=== PATIENT | female | born 1930 | race Caucasian/White ===

== ENCOUNTER 2018-01-08 18:06 | Observation (INO) ==
--- NOTE | 2018-01-08 18:31 | Emergency Department Note ---
Disposition Clinical Impression: Left patella fracture Qualifiers: Encounter type: initial encounter Fracture type: closed Fracture morphology: longitudinal Fracture alignment: nondisplaced Qualified Code(s): S82.025A - Nondisplaced longitudinal fracture of left patella, initial encounter for closed fracture Disposition: Admitted As Inpatient Condition: Fair Referrals: Manfred Molina MD [Primary Care Provider] - Forms: ED Satisfaction Letter Time of Disposition: 21:05 General Adult HPI - General Chief complaint: ED Fall Stated complaint: Left leg pain/Fall Time Seen by Provider: 01/08/18 18:19 Source: patient, family Limitations: no limitations - History of Present Illness HPI Narrative: This is an 87 y/o female who comes to the ED from ortho with concern for left tibial plateau fracture. She lives alone, and her family is concerned, since the orthopedic surgeon told them she should be nonweightbearing, that she will be unable to manage at home. Follow apparently occurred about 47 hours prior to arrival. She saw her orthopedic surgeon earlier today. Pain Scale: 4 - Related Data Previous Rx's Medication Instructions Recorded OxyCODONE/APAP 5/325 [Percocet 1 each PO Q6HR PRN #20 tablet 11/27/15 5/325 MG] Sulfamethoxazole/Trimeth DS 1 each PO BID #20 tablet 10/23/17 [Bactrim DS] Allergies Allergy/AdvReac Type Severity Reaction Status Date / Time Penicillins Allergy Hives Verified 11/27/15 17:40 gabapentin AdvReac Confusion Verified 10/23/17 14:25 terbinafine [From Lamisil] AdvReac Nausea Verified 10/23/17 14:25 All systems ED: reviewed and negative except as stated. Musculoskeletal: Reports: arthralgia Past Medical History - Past Medical History Medical history: Reports: diabetes, hypertension, myocardial infarction, other - Social History Smoking Status: Never smoker Smokeless Tobacco Status: No Alcohol use: Reports: none Drug use: Reports: none Physical Exam - General Limitations: no limitations General appearance: alert, in distress (in mild distress) - Eye Eye exam: Present: normal appearance, PERRL, EOMI - Chest Chest inspection: Present: normal inspection, symmetric chest wall rise - Respiratory Respiratory exam: Present: normal lung sounds bilaterally - Cardiovascular Cardiovascular exam: Present: regular rate, normal rhythm, normal heart sounds - Abdominal Exam Abdominal exam: Present: soft, Non-Tender. Absent: tenderness, distention, guarding, rebound, rigidity - Extremities Exam Extremities exam: Present: other (There is swelling along the inferior aspect of the left knee extending onto the proximal left tibia with an area of ecchymosis measuring approximately 4 cm in diameter. There is minimal patellar tenderness, with no lateral or medial tenderness, Betsey test is negative, Luis Angel test is negative) - Neurological Exam Neurological exam: Present: alert, oriented X3 - Psychiatric Psychiatric exam: Present: normal affect, normal mood - Skin Skin exam: Present: warm, dry, intact, normal color Course Course Narrative: This is an 87-year-old female with a minimum of a contusion of the left knee. Vital Signs Temperature 98.4 F 01/08/18 18:11 Pulse Rate 94 01/08/18 18:11 Respiratory Rate 18 01/08/18 18:11 Blood Pressure 82/53 01/08/18 18:11 O2 Sat by Pulse Oximetry 96 01/08/18 18:11 Temperature 98.4 F 01/08/18 18:11 Pulse Rate 89 01/08/18 20:28 Respiratory Rate 18 01/08/18 20:28 Blood Pressure 90/50 01/08/18 20:28 O2 Sat by Pulse Oximetry 96 01/08/18 18:11 Oxygen Delivery Oxygen Delivery Room Air Medical Decision Making - [facility] Narrative Medical decision making narrative: This is an 87-year-old female who has sustained a sagittally oriented fracture of her left patella. I discussed her case with the on-call hospitalist, who accepted her for observation - Lab Data Lab results reviewed: Yes I reviewed the patient's lab results. Lab results narrative: CBC showed slight leukocytosis of 12.1 BMP was unremarkable Result diagrams: 01/08/18 18:44 01/08/18 18:44 Lab Results 01/08/18 01/08/18 Range/Units 18:44 18:44 WBC 12.1 H (4.3-11.1) K/mcL RBC 3.58 L (3.82-4.97) M/mcL Hgb 11.5 (11.5-15.4) g/dL Hct 34.3 L (35.3-44.9) % MCV 95.8 (83.0-100.0) fL MCH 32.1 (28.0-33.3) pg MCHC 33.5 (31.6-35.5) g/dL RDW 12.7 (11.5-14.5) % Plt Count 217 (140-400) K/mcL MPV 9.8 (9.4-12.4) fL Immature Gran % 0.4 (0-4) % Seg Neutrophils % 65.5 % Lymphocytes % 18.2 % Monocytes % 15.2 % Eosinophils % 0.3 % Basophils % 0.4 % Neutrophils # 7.9 (1.6-8.9) K/mcL Lymphocytes # 2.2 (0.6-4.6) K/mcL Monocytes # 1.8 H (0.0-1.3) K/mcL Eosinophils # 0.0 (0.0-0.6) K/mcL Basophils # 0.1 (0.0-0.2) K/mcL Sodium 136 (136-145) mEq/L Potassium 3.7 (3.5-5.1) mEq/L Chloride 102 (98-107) mEq/L Carbon Dioxide 27 (23-29) mEq/L BUN 16 (8-23) mg/dL Creatinine 0.55 L (0.60-1.20) mg/dL Est GFR ( Amer) > 60 (> 60) Est GFR (Non-Af Amer) > 60 (> 60) BUN/Creatinine Ratio 29 H (6-26) Glucose 113 H (70-105) mg/dL Calculated Osmolality 284 (280-300) Calcium 8.9 (8.6-10.3) mg/dL - Radiology Data Radiology results reviewed: Yes I reviewed the patient's radiology results. CT of the left knee was interpreted as follows: 1. Acute nondisplaced sagittally oriented fracture of the inferolateral patella. 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 2. Moderate tricompartmental degenerative changes with a small effusion. Critical Care Time Critical Care Time: No
[2018-01-08 18:59] LABS: Basophils # 0.1 K/mcL (0.0-0.2); Basophils % 0.4 %; Eosinophils % 0.3 %; Hematocrit 34.3 % (35.3-44.9); Hemoglobin 11.5 g/dL (11.5-15.4); Immature Granulocytes % 0.4 % (0-4); Lymphocytes # 2.2 K/mcL (0.6-4.6); Lymphocytes % 18.2 %; Mean Corpuscular HGB Conc 33.5 g/dL (31.6-35.5); Mean Corpuscular Hemoglobin 32.1 pg (28.0-33.3); Mean Corpuscular Volume 95.8 fL (83.0-100.0); Mean Platelet Volume 9.8 fL (9.4-12.4); Monocytes # 1.8 K/mcL (0.0-1.3); Monocytes % 15.2 %; Neutrophils # 7.9 K/mcL (1.6-8.9); Platelet Count 217 K/mcL (140-400); Red Blood Count 3.58 M/mcL (3.82-4.97); Red Cell Distribution Width 12.7 % (11.5-14.5); Segmented Neutrophils % 65.5 %
[2018-01-08 19:17] LABS: BUN/Creatinine Ratio 29 (6-26); Blood Urea Nitrogen 16 mg/dL (8-23); Calcium 8.9 mg/dL (8.6-10.3); Carbon Dioxide 27 mEq/L (23-29); Chloride 102 mEq/L (98-107); Glucose 113 mg/dL (70-105); Osmolality,Calculated 284 (280-300); Potassium 3.7 mEq/L (3.5-5.1); Sodium 136 mEq/L (136-145); eGFR For Non-African Americans > 60 (> 60)
[2018-01-08] MEDS ORDERED: 0.9 % Sodium Chloride 500 ML IVC ONE (20:33)
[2018-01-08] MEDS ORDERED: Naloxone 0.4 MG/ML INJ IVP PRN (23:04)
[2018-01-08] MEDS ORDERED: Dextrose Gel 15 GM/37.5 ML TUBE PO PRN ×2 (23:04)
[2018-01-08] MEDS ORDERED: D5% in Water 1,000 ML IVC PRN (23:04)
[2018-01-08] MEDS ORDERED: *HR* HYDROcodone/Acet 5/325 mg TABLET PO PRN (23:04)
[2018-01-08] MEDS ORDERED: *HR* Dextrose 50 % in Water (Syg) 50 ML SYRINGE IVP PRN (23:04)
--- NOTE | 2018-01-09 00:17 | Internal Med History&Physical ---
Date of Encounter: 01/08/18 Time of Encounter: 22:40 Internal Medicine - H&P: HPI Chief complaint: intractable knee pain Admitted From: Emergency Dept Plans for Post Hospital Care: Transfer Inp Rehab Fac History of present illness: Ms. Wyman is an 87 year old female who fell 2 days ago now presents to our ER for intractable knee pain, an inability to bear weight, and inability to care for herself. She saw an orthopedic surgeon at [facility] earlier today. Patient was unable to bear weight and unable to have MRI imaging performed today. Because of the worsening pain and inability to bear weight, she came to our ER for evaluation. She underwent CT imaging of her left knee which confirmed a patellar fracture. Orthopedics was consulted by the ER who recommended patient be placed in a knee immobilizer, bear weight as tolerated, and undergo physical therapy. Attempts were made to discharge patient with the above recommendations. However, she was unable to bear weight and was unable to care for self. She was therefore admitted to hospitalist service with orthopedic consultation. Upon my assessment of the patient, patient and her daughter and granddaughter confirmed the above history. Patient lives alone and cares for herself. She is unable to bear weight due to excruciating pain. She denies any lightheadedness, dizziness, syncope, or near syncope with her fall. She states she slipped on a step in a garage and landed on concrete thus sustaining injury to her left knee. Patient does have a history of atrial fibrillation and has a pacemaker in place. However, she denies any palpitations, lightheadedness, dizziness, or racing heartbeats. She denies any chest pain or shortness of breath. I discussed with patient, daughter, and granddaughter that we will consult orthopedics, physical therapy, and social sciences instructor. Because of the inability to care for herself and inability to bear weight presently, she cannot go home safely. Past Med Surg Social Fam HX - Past Medical History Attestation: Yes The following information was validated with the patient. Source: patient, obtained from family, other (ER notes) Medical history: arthritis, atrial fibrillation, CVA, diabetes, GERD, hypertension, myocardial infarction, seizures Additional medical history: PNEUMONIA Psychiatric history: anxiety, depression - Past Surgical History Surgical History: , coronary bypass (CABG), AICD, pacemaker Additional surgical history: hip surgery - Social History Smoking Status: Never smoker Smokeless Tobacco Status: No Alcohol use: none Drug use: none Current living situation: Home - Independent Activity Level: Independent ambulation Recent Out of Country Travel Within the Last 8 Weeks: No - Family History Mother Living Status: Hx Family Musculoskeletal Disorders: No Father Living Status: Hx Family Musculoskeletal Disorders: No Internal Medicine - H&P: Meds Alendronate Sodium 70 mg PO TU 01/08/18 [History] Aspirin [Lo-Dose Aspirin EC] 162 mg PO DAILY 01/08/18 [History] Calcium Carbonate [Calcium] 500 mg PO DAILY 01/08/18 [History] Cholecalciferol (D-3) [Vitamin D] 1,000 unit PO DAILY 01/08/18 [History] Cyanocobalamin (B-12) [Vitamin B12] 1,000 mcg IM FR 01/08/18 [History] Ferrous Sulfate [Iron] 325 mg PO DAILY 01/08/18 [History] Magnesium Oxide [Magnesium] 400 mg PO DAILY 01/08/18 [History] Mecobalamin [B-12] 1,000 mcg SL DAILY 01/08/18 [History] Metformin HCl 250 mg PO DAILY 01/08/18 [History] Omeprazole [PriLOSEC] 40 mg PO DAILY 01/08/18 [History] PARoxetine HCl [Paroxetine HCl] 40 mg PO DAILY 01/08/18 [History] Phenytoin ER [Dilantin ER] 100 mg PO TID 01/08/18 [History] Polyethylene Glycol 3350 [MiraLax bowel prep] 17 gm PO DAILY PRN 01/08/18 [History] Simvastatin [Zocor] 10 mg PO DAILY 01/08/18 [History] Sotalol HCl [Betapace] 120 mg PO QPM 01/08/18 [History] Allergy/AdvReac Type Severity Reaction Status Date / Time Penicillins Allergy Hives Verified 11/27/15 17:40 gabapentin AdvReac Confusion Verified 10/23/17 14:25 sulfamethoxazole AdvReac See Verified 01/08/18 21:39 [From Bactrim] Comments terbinafine [From Lamisil] AdvReac Nausea Verified 10/23/17 14:25 trimethoprim [From Bactrim] AdvReac See Verified 01/08/18 21:39 Comments - Constitutional Constitutional: no chills, no fever(s) - EENT Eyes: no blurry vision, no change in vision Ears: no ear pain, no tinnitus Nose, mouth and throat: no sore throat - Cardiovascular Cardiovascular ROS IM: irregular heart rhythm (chronic atrial fibrillation), no chest pain, no dyspnea, no dyspnea on exertion, no lightheadedness, no palpitations, no syncope - Respiratory Respiratory: no cough, no chest congestion, no excessive phlegm production - Gastrointestinal Gastrointestinal: no abdominal pain, no diarrhea, no vomiting - Genitourinary Genitourinary: no dysuria, no flank pain - Musculoskeletal Musculoskeletal ROS IM: arthralgias, joint swelling (left knee) - Integumentary Integumentary IM: no rash, no jaundice - Neurological Neurological ROS: frequent falls, no dizziness, no focal weakness, no headache(s) - Psychiatric Psychiatric: no anxiety, no depression - Endocrine Endocrine IM: no polydipsia, no polyphagia, no polyuria - Allergic/Immunologic Allergic/Immunologic: no GI upset with certain foods - Constitutional Vitals: Temp Pulse Resp BP Pulse Ox 99.3 F 120 16 121/68 95 01/08/18 22:13 01/08/18 22:13 01/08/18 22:13 01/08/18 22:13 01/08/18 22:13 General appearance: Present: cooperative, mild distress, pleasant, answers questions appropriately Exam: in mild to moderate pain; otherwise NAD - Head Head exam: Present: atraumatic, normal inspection - Eye Eye exam: Present: EOMI, PERRL. Absent: scleral icterus Pupils: Present: normal accommodation - ENT ENT exam: Present: mucous membranes dry, normal exam, normal oropharynx - Neck Neck exam general surgery: Present: full ROM, supple. Absent: tenderness, nuchal rigidity, thyromegaly - Respiratory Respiratory exam: Present: CTAB. Absent: chest wall tenderness, rales, respiratory distress, rhonchi, wheezes - Cardiovascular Cardiovascular exam: Present: distant heart sounds, irregular rhythm, +S1, +S2, systolic murmur (grade 1). Absent: diastolic murmur - GI/Abdominal GI/Abdominal exam: Present: normal bowel sounds, soft. Absent: guarding, hepatomegaly, mass, rebound, splenomegaly, tenderness - Extremities Exam Extremities exam: Present: joint swelling (left knee), normal capillary refill, warm. Absent: calf tenderness, pedal edema Additional comments: left knee immobilized - Back Exam Back exam: Absent: CVA tenderness (L), CVA tenderness (R) - Neurological Exam Neurological exam: Present: alert, CN II-XII intact, oriented X3, strengths equal and symetr throughout Additional comments: chronic parathesias in feet -- neuropathy - Psychiatric Psychiatric exam: Present: normal affect, normal mood - Skin Skin exam: Present: dry, intact, warm Internal Med - H&P Results - Labs CBC & Chem 7: 01/08/18 18:44 01/08/18 18:44 Labs: Short CBC 01/08/18 Range/Units 18:44 WBC 12.1 H (4.3-11.1) K/mcL Hgb 11.5 (11.5-15.4) g/dL Hct 34.3 L (35.3-44.9) % Plt Count 217 (140-400) K/mcL Neutrophils # 7.9 (1.6-8.9) K/mcL BMP 01/08/18 18:44 Sodium 136 Potassium 3.7 Chloride 102 Carbon Dioxide 27 BUN 16 Creatinine 0.55 L Glucose 113 H Calcium 8.9 - Impressions ITS Impressions Knee CT 01/08/18 18:29 IMPRESSION: 1. Acute nondisplaced sagittally oriented fracture of the inferolateral patella. 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 2. Moderate tricompartmental degenerative changes with a small effusion. D/ / Devyn Fay MD / Devyn Fay MD Interpreting Provider: Devyn Fay MD - Diagnostic Studies Other Images Status: image reviewed by me (Left knee CT -- non-displaced patellar fracture) - Assessment and plan (1) Left patella fracture Current Visit: Yes Status: Acute Assessment and plan: 1. Will order oral pain medication in a step-pleitez fashion for pain control. 2. Consult PT and orthopedics for guidance. 3. Consult social sciences instructor for D/C planning. 4. Patient unable to care for herself presently. Qualifiers: Encounter type: initial encounter Fracture type: closed Fracture morphology: longitudinal Fracture alignment: nondisplaced Qualified Code(s): S82.025A - Nondisplaced longitudinal fracture of left patella, initial encounter for closed fracture (2) Atrial fibrillation Current Visit: Yes Status: Chronic Assessment and plan: 1. Will order EKG and place on telemetry. 2. Continue home meds as appropriate. 3. Consult cardiology if necessary. 4. Patient follows with cardiology in [place] as outpatient. Qualifiers: Atrial fibrillation type: paroxysmal Qualified Code(s): I48.0 - Paroxysmal atrial fibrillation (3) CAD (coronary artery disease) Current Visit: Yes Status: Chronic Assessment and plan: 1. Continue home meds as appropriate. 2. EKG and telemetry as above. 3. No anginal symptoms presently or in recent past. Qualifiers: Coronary Disease-Associated Artery/Lesion type: [place] artery [place] vs. transplanted heart: [place] heart Associated angina: without angina Qualified Code(s): I25.10 - Atherosclerotic heart disease of [place] coronary artery without angina pectoris (4) DVT prophylaxis Current Visit: Yes Status: Acute Assessment and plan: 1. Heparin SQ.
[2018-01-09] MEDS ORDERED: [UNRECOGNIZED DRUG - OTHER] TP PRN (00:49)
[2018-01-09] MEDS: traMADol 50 MG TABLET PO PRN (01:57)
[2018-01-09] MEDS: 0.9 % Sodium Chloride 1,000 ML IVC SCH ×2 (01:58→15:27)
[2018-01-09 04:56] LABS: Basophils # 0.1 K/mcL (0.0-0.2); Basophils % 0.5 %; Eosinophils # 0.1 K/mcL (0.0-0.6); Eosinophils % 0.6 %; Hematocrit 32.4 % (35.3-44.9); Hemoglobin 10.7 g/dL (11.5-15.4); Immature Granulocytes % 0.4 % (0-4); Lymphocytes % 18.4 %; Mean Corpuscular Hemoglobin 32.1 pg (28.0-33.3); Mean Corpuscular Volume 97.3 fL (83.0-100.0); Mean Platelet Volume 9.6 fL (9.4-12.4); Monocytes # 1.7 K/mcL (0.0-1.3); Monocytes % 15.4 %; Neutrophils # 6.9 K/mcL (1.6-8.9); Platelet Count 200 K/mcL (140-400); Red Blood Count 3.33 M/mcL (3.82-4.97); Red Cell Distribution Width 12.9 % (11.5-14.5); Segmented Neutrophils % 64.7 %
[2018-01-09 05:05] LABS: INR 1.2; Prothrombin Time 13.1 Seconds (9.4-12.1)
[2018-01-09 05:08] LABS: Activated Partial Thrombo Time 28.1 Seconds (26.0-36.0)
[2018-01-09 05:15] LABS: Alanine Aminotransferase 8 Units/L (7-52); Albumin 3.3 g/dL (3.5-5.7); Alkaline Phosphatase 71 Units/L (34-104); Aspartate Amino Transferase 12 Units/L (13-39); BUN/Creatinine Ratio 29 (6-26); Bilirubin,Total 0.7 mg/dL (0.3-1.0); Blood Urea Nitrogen 15 mg/dL (8-23); Calcium 8.6 mg/dL (8.6-10.3); Carbon Dioxide 26 mEq/L (23-29); Chloride 103 mEq/L (98-107); Globulin 3.2 g/dL (2.4-3.5); Glucose 128 mg/dL (70-105); Magnesium 1.5 mg/dL (1.6-2.6); Osmolality,Calculated 280 (280-300); Potassium 3.7 mEq/L (3.5-5.1); Sodium 134 mEq/L (136-145); Total Protein 6.5 g/dL (6.4-8.9); eGFR For Non-African Americans > 60 (> 60)
[2018-01-09] MEDS: *HR* Heparin 5,000 UNIT/ML VIAL SQ SCH ×2 (06:49→18:26)
[2018-01-09] MEDS: Insulin LISPRO 300 UNITS/3 ML VIAL SQ SCH ×3 (09:18→16:13)
[2018-01-09] MEDS: Aspirin Enteric Coated 81 MG Tablet PO SCH (09:20)
[2018-01-09] MEDS: Magnesium Oxide 400 MG TABLET PO SCH (09:20)
[2018-01-09] MEDS: Cyanocobalamin (B-12) 1,000 MCG TABLET PO SCH (09:21)
[2018-01-09] MEDS: Cholecalciferol (D-3) 1,000 UNIT TABLET PO SCH (09:21)
[2018-01-09] MEDS: Acetaminophen 325 MG TABLET PO PRN (12:37)
--- NOTE | 2018-01-09 12:56 | Internal Med Progress Note ---
Hospitalist Progress Note - Encounter Date of Encounter: 01/09/18 Time of Encounter: 12:45 - Subjective Interval History: I have seen and evaluated the patient at bedside. patient reports pain in her left knee. denies palpitation, nausea, vomiting or abdominal pain as well as shortness of breath. - Exam Vitals: Temp Pulse Resp BP Pulse Ox 100.2 F H 83 15 119/62 92 01/09/18 11:35 01/09/18 11:35 01/09/18 11:35 01/09/18 11:35 01/09/18 11:35 Exam: Vitals: Reviewed. General: Alert and oriented x4. In mild distress due to left knee pain. Skin: Normal color, no rash, no lesions. HEENT: EOM, pupils equal, round and reactive. Cardiovascular: Irregularly, irregular, Normal S1 & S2, no rubs, no gallops. 2/6 systolic murmur Lungs: CTA b/l, no wheezes or crackles. Abdomen: Soft, non-tender, no rigidity. Extremities: No edema in the right lower extr, edema on the left knee. Neurological:Normal cognition. Rest of the physical exam is non contributory - Assessment and Plan (1) Left patella fracture Current Visit: Yes Status: Acute Assessment and Plan: [place] continues to reports pain at the left knee. Ortho has been consulted, recommendations appreciated. patient on [place] 5/325mg/PO 1tab Q6HR PRN plus tramadol 50 mg by mouth every 6 hours for pain control psych social worker have been consulted as patient will likely need a short course of rehab PT/OT (2) Atrial fibrillation Current Visit: Yes Status: Chronic Assessment and Plan: Rate controlled. continue Sotalol 120mg/PO daily Not on full dose anticoagulation on the outpatient settings due to high risk of fall (3) CAD (coronary artery disease) Current Visit: Yes Status: Chronic Assessment and Plan: On aspirin 162 mg by mouth daily. And simvastatin 10 mg by mouth at bedtime. (4) Seizures Current Visit: Yes Status: Chronic Assessment and Plan: Continue phenytoin 100 mg by mouth 3 times a day. (5) Diabetes Current Visit: Yes Status: Chronic Assessment and Plan: Blood sugar has been well controlled. carb controlled diet. continue lispro low dose sliding scale ac. DVT Prophylaxis: Patient heparin subcutaneous. - Summary of Assessment and Plan Summary of Assessment and Plan: Patient to remain in the hospital due to left patellar fracture. Pending ortho evaluation. - Time Spent with Patient Total time spent is greater than 50% in coordination of care (as documented) at patient's floor/unit and/or counseling patient: Greater than 35 minutes (40) Plan of Care Discussed with: patient (the nurse and family member in the room) Internal Medicine: Result - Labs CBC & Chem 7: 01/09/18 04:33 01/09/18 04:33 Labs: Short CBC 01/08/18 01/09/18 Range/Units 18:44 04:33 WBC 12.1 H 10.7 (4.3-11.1) K/mcL Hgb 11.5 10.7 L (11.5-15.4) g/dL Hct 34.3 L 32.4 L (35.3-44.9) % Plt Count 217 200 (140-400) K/mcL Neutrophils # 7.9 6.9 (1.6-8.9) K/mcL BMP 01/08/18 01/09/18 18:44 04:33 Sodium 136 134 L Potassium 3.7 3.7 Chloride 102 103 Carbon Dioxide 27 26 BUN 16 15 Creatinine 0.55 L 0.51 L Glucose 113 H 128 H Calcium 8.9 8.6 Liver Function 01/09/18 Range/Units 04:33 Total Bilirubin 0.7 (0.3-1.0) mg/dL AST 12 L (13-39) Units/L ALT 8 (7-52) Units/L Alkaline Phosphatase 71 (34-104) Units/L Albumin 3.3 L (3.5-5.7) g/dL - ABG Interpretation ABG results: PT/INR, D-dimer PT 13.1 Seconds (9.4-12.1) H 01/09/18 04:33 - Impressions Impressions Knee CT 01/08/18 18:29 IMPRESSION: 1. Acute nondisplaced sagittally oriented fracture of the inferolateral patella. 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 2. Moderate tricompartmental degenerative changes with a small effusion. D/ / Devyn Fay MD / Devyn Fay MD Interpreting Provider: Devyn Fay MD Consult Discharge Plan - Plan Referrals: Manfred Molina MD [Primary Care Provider] - (1) Left patella fracture Qualifiers: Encounter type: initial encounter Fracture type: closed Fracture morphology: longitudinal Fracture alignment: nondisplaced Qualified Code(s): S82.025A - Nondisplaced longitudinal fracture of left patella, initial encounter for closed fracture (2) Atrial fibrillation Qualifiers: Atrial fibrillation type: paroxysmal Qualified Code(s): I48.0 - Paroxysmal atrial fibrillation (3) CAD (coronary artery disease) Qualifiers: Coronary Disease-Associated Artery/Lesion type: [place] artery [place] vs. transplanted heart: [place] heart Associated angina: without angina Qualified Code(s): I25.10 - Atherosclerotic heart disease of [place] coronary artery without angina pectoris (5) Diabetes Qualifiers: Diabetes mellitus type: type 2 Diabetes mellitus residential insulin use: unspecified residential insulin use status Diabetes mellitus complication status: with unspecified complications Qualified Code(s): E11.8 - Type 2 diabetes mellitus with unspecified complications
[2018-01-10] MEDS: Acetaminophen 325 MG TABLET PO PRN ×3 (01:09→16:50)
[2018-01-10 05:13] LABS: Basophils # 0.1 K/mcL (0.0-0.2); Basophils % 0.6 %; Eosinophils # 0.1 K/mcL (0.0-0.6); Hematocrit 30.2 % (35.3-44.9); Hemoglobin 9.9 g/dL (11.5-15.4); Immature Granulocytes % 0.3 % (0-4); Lymphocytes # 2.6 K/mcL (0.6-4.6); Lymphocytes % 28.6 %; Mean Corpuscular HGB Conc 32.8 g/dL (31.6-35.5); Mean Corpuscular Volume 97.7 fL (83.0-100.0); Mean Platelet Volume 9.9 fL (9.4-12.4); Monocytes # 1.1 K/mcL (0.0-1.3); Monocytes % 12.6 %; Neutrophils # 5.1 K/mcL (1.6-8.9); Platelet Count 188 K/mcL (140-400); Red Blood Count 3.09 M/mcL (3.82-4.97); Red Cell Distribution Width 12.7 % (11.5-14.5); Segmented Neutrophils % 56.9 %
[2018-01-10 05:36] LABS: BUN/Creatinine Ratio 28 (6-26); Blood Urea Nitrogen 15 mg/dL (8-23); Calcium 8.3 mg/dL (8.6-10.3); Carbon Dioxide 26 mEq/L (23-29); Chloride 105 mEq/L (98-107); Glucose 133 mg/dL (70-105); Magnesium 1.6 mg/dL (1.6-2.6); Osmolality,Calculated 287 (280-300); Phosphorous 2.1 mg/dL (2.7-4.5); Potassium 3.9 mEq/L (3.5-5.1); Sodium 137 mEq/L (136-145); eGFR For Non-African Americans > 60 (> 60)
[2018-01-10] MEDS: *HR* Heparin 5,000 UNIT/ML VIAL SQ SCH ×2 (06:08→17:27)
--- NOTE | 2018-01-10 07:54 | Orthopedic Consult Note ---
Date of Encounter: 01/10/18 Time of Encounter: 07:52 Assessment and Plan (1) Left patella fracture Current Visit: Yes Status: Acute The diagnosis and treatment options were discussed with the patient. Recommend nonoperative management of her patella fracture. She is able to straight leg raise with the left leg. Recommendations for a knee immobilizer with weightbearing as tolerated with a walker. She will follow-up with Dr. Sanders in [place] who she has been seeing for her knees. Qualifiers: Encounter type: initial encounter Fracture type: closed Fracture morphology: longitudinal Fracture alignment: nondisplaced Qualified Code(s): S82.025A - Nondisplaced longitudinal fracture of left patella, initial encounter for closed fracture History of Present Illness HPI: Ms. Wyman is a 87 year old female who had a mechanical fall several days ago onto her left knee and was admitted with left intractable knee pain, difficulty with weight bearing, and inability to care for herself. She had a CT scan of her left knee in the ED which showed a nondisplaced sagittal patellar fracture. Pain is over the anterior knee. Does have underlying knee pain due to arthritis. No neuro symptoms. No prodromal symptoms prior to fall. Orthopedics was consulted for recommendations. Past Med Surg Social Fam HX - Past Medical History Medical history: arthritis, atrial fibrillation, CVA, diabetes, GERD, hyperte nsion, myocardial infarction, seizures Additional medical history: PNEUMONIA Psychiatric history: anxiety, depression - Past Surgical History Surgical History: , coronary bypass (CABG), AICD, pacemaker Additional surgical history: hip surgery - Social History Smoking Status: Never smoker Smokeless Tobacco Status: No Alcohol use: none Drug use: none - Family History Mother Living Status: Hx Family Musculoskeletal Disorders: No Father Living Status: Hx Family Musculoskeletal Disorders: No Medications and Allergies Alendronate Sodium 70 mg PO TU 01/08/18 [History] Aspirin [Lo-Dose Aspirin EC] 162 mg PO DAILY 01/08/18 [History] Calcium Carbonate [Calcium] 500 mg PO DAILY 01/08/18 [History] Cholecalciferol (D-3) [Vitamin D] 1,000 unit PO DAILY 01/08/18 [History] Cyanocobalamin (B-12) [Vitamin B12] 1,000 mcg IM FR 01/08/18 [History] Ferrous Sulfate [Iron] 325 mg PO DAILY 01/08/18 [History] Magnesium Oxide [Magnesium] 400 mg PO DAILY 01/08/18 [History] Mecobalamin [B-12] 1,000 mcg SL DAILY 01/08/18 [History] Metformin HCl 250 mg PO DAILY 01/08/18 [History] Omeprazole [PriLOSEC] 40 mg PO DAILY 01/08/18 [History] PARoxetine HCl [Paroxetine HCl] 40 mg PO DAILY 01/08/18 [History] Phenytoin ER [Dilantin ER] 100 mg PO TID 01/08/18 [History] Polyethylene Glycol 3350 [MiraLax bowel prep] 17 gm PO DAILY PRN 01/08/18 [History] Simvastatin [Zocor] 10 mg PO DAILY 01/08/18 [History] Sotalol HCl [Betapace] 120 mg PO QPM 01/08/18 [History] Allergy/AdvReac Type Severity Reaction Status Date / Time Penicillins Allergy Hives Verified 11/27/15 17:40 gabapentin AdvReac Confusion Verified 10/23/17 14:25 sulfamethoxazole AdvReac See Verified 01/08/18 21:39 [From Bactrim] Comments terbinafine [From Lamisil] AdvReac Nausea Verified 10/23/17 14:25 trimethoprim [From Bactrim] AdvReac See Verified 01/08/18 21:39 Comments All Systems Reviewed: The remainder of the systems were reviewed and are negative except as noted in the HPI Physical Exam - Constitutional Vitals: Temp Pulse Resp BP Pulse Ox 98.3 F 76 18 118/66 94 01/10/18 06:53 01/10/18 06:53 01/10/18 06:53 01/10/18 06:53 01/10/18 06:53 Exam: Consult Exam: Constitutional -Vitals reviewed -The patient is well developed and well nourished. -Mood is pleasant. -The patient is well groomed. Psychiatric -The patient is fully alert and oriented x 3. Respiratory: -Respiratory effort normal Abdomen: -Soft abdomen -Non tender -Non distended: Left upper extremity: -No deformities. The overlying skin is intact. No obvious signs of acute trauma. -No tenderness to palpation throughout. -No significant pain with passive motion of the shoulder, elbow, wrist, and fingers within the limits of the bed. -Able to make an "OK" sign, cross the index and long fingers, and extend the thumb. -Sensation grossly intact to light touch throughout the median, radial, and ulnar distributions. -Radial pulse is present; Fingers have good capillary refill. Right upper extremity: -No deformities. The overlying skin is intact. No obvious signs of acute trauma. -No tenderness to palpation throughout. -No significant pain with passive motion of the shoulder, elbow, wrist, and fingers within the limits of the bed. -Able to make an "OK" sign, cross the index and long fingers, and extend the thumb. -Sensation grossly intact to light touch throughout the median, radial, and ulnar distributions. -Radial pulse is present; Fingers have good capillary refill. Left lower extremity: -No deformities. The overlying skin is intact. Tenderness to palpation anterior patella -Pain with ROM of the knee -No pain with axial loading of the thigh. -Able to dorsiflex and plantarflex the ankle and toes. -Able to SLR -Sensation is grossly intact to light touch throughout the sural, saphenous, superficial peroneal, and deep peroneal distributions. -Toes have good capillary refill. Right lower extremity: -No deformities. The overlying skin is intact. No obvious signs of acute trauma. -No tenderness to palpation throughout. -No pain with passive motion of the hip, knee, ankle, and toes within the limits of the bed. -No pain with axial loading of the thigh. -Able to dorsiflex and plantarflex the ankle and toes. -Sensation is grossly intact to light touch throughout the sural, saphenous, superficial peroneal, and deep peroneal distributions. -Toes have good capillary refill. Results - Labs Result Diagrams: 01/10/18 04:30 01/10/18 04:30 Labs: Abnormal lab results RBC 3.09 M/mcL (3.82-4.97) L 01/10/18 04:30 Hgb 9.9 g/dL (11.5-15.4) L 01/10/18 04:30 Hct 30.2 % (35.3-44.9) L 01/10/18 04:30 PT 13.1 Seconds (9.4-12.1) H 01/09/18 04:33 Creatinine 0.54 mg/dL (0.60-1.20) L 01/10/18 04:30 BUN/Creatinine Ratio 28 (6-26) H 01/10/18 04:30 Glucose 133 mg/dL (70-105) H 01/10/18 04:30 POC Glucose 137 mg/dL (70-99) H 01/09/18 15:40 Calcium 8.3 mg/dL (8.6-10.3) L 01/10/18 04:30 Phosphorus 2.1 mg/dL (2.7-4.5) L 01/10/18 04:30 AST 12 Units/L (13-39) L 01/09/18 04:33 Albumin 3.3 g/dL (3.5-5.7) L 01/09/18 04:33 Albumin/Globulin Ratio 1.0 (1.1-2.2) L 01/09/18 04:33 H & H 01/10/18 Range/Units 04:30 Hgb 9.9 L (11.5-15.4) g/dL Hct 30.2 L (35.3-44.9) % All other labs normal. - Diagnostic results Knee CT: report reviewed, image reviewed (Non displaced sagittal patella fr acture with tripartite patella) Consult Discharge Plan - Plan Referrals: Manfred Molina MD [Primary Care Provider] -
[2018-01-10] MEDS: Insulin LISPRO 300 UNITS/3 ML VIAL SQ SCH ×3 (08:29→17:30)
[2018-01-10] MEDS: Cholecalciferol (D-3) 1,000 UNIT TABLET PO SCH (09:32)
[2018-01-10] MEDS: Cyanocobalamin (B-12) 1,000 MCG TABLET PO SCH (09:32)
[2018-01-10] MEDS: Magnesium Oxide 400 MG TABLET PO SCH (09:32)
[2018-01-10] MEDS: Aspirin Enteric Coated 81 MG Tablet PO SCH (09:32)
--- NOTE | 2018-01-10 11:29 | Discharge Summary ---
- NOTES TO OUTPATIENT PROVIDER Notes to Outpatient Provider: [place]oped[place] ([place] of hospital discharge. Orders not resulted at time of discharge: Pending orders 01/09/18 17:15 Urinalysis Reflex Cult & Micro [URIN] Routine Date of Encounter: 01/10/18 Time of Encounter: 11:28 - Discharge Diagnosis (1) Left patella fracture Priority: Primary Status: Acute Qualifiers: Encounter type: initial encounter Fracture type: closed Fracture morphology: longitudinal Fracture alignment: nondisplaced Qualified Code(s): S82.025A - Nondisplaced longitudinal fracture of left patella, initial enco unter for closed fracture (2) Atrial fibrillation Priority: Secondary Status: Chronic Qualifiers: Atrial fibrillation type: paroxysmal Qualified Code(s): I48.0 - Paroxysmal atrial fibrillation (3) CAD (coronary artery disease) Priority: Secondary Status: Chronic Qualifiers: Coronary Disease-Associated Artery/Lesion type: [place] artery [place] vs. transplanted heart: [place] heart Associated angina: without angina Qualified Code(s): I25.10 - Atherosclerotic heart disease of [place] coronary artery without angina pectoris (4) Seizures Priority: Secondary Status: Chronic (5) Diabetes Priority: Secondary Status: Chronic Qualifiers: Diabetes mellitus type: type 2 Diabetes mellitus fpc insulin use: unspecified fpc insulin use status Diabetes mellitus complication status: with unspecified complications Qualified Code(s): E11.8 - Type 2 diabetes mellitus with unspecified complications Hospital course: Ms. Wyman is a 87 year old female past medical history arthritis, atrial fibrillation, CVA, diabetes, GERD, hypertension, myocardial infarction, seizures. Patient presented to the emergency room after sustaining a fall today prior stool in the presentation to the ER. Patient came to the emergency room due to intractable knee pain and inability to bear weight and inability to care for herself. She underwent CT imaging of her left knee which confirmed a patellar fracture. Patient admitted to the hospital due to left patellar fracture. Orthopedics was consulted by the ER who recommended nonoperative management of her patella fracture. Patient be placed in a knee immobilizer, bear weight as tolerated, and undergo physical therapy. And to follow-up with Dr. [place] in [place] who she has been seeing for her knees. PT/O evaluated the patient and recommended SNF/ECF. Patient is hemodynamically stable to be discharged. - Time Spent with Patient Total time spent providing and/or coordinating discharge services: Greater than 30 minutes (35) - Discharge Medications Prescriptions: HYDROcodone/Acet 5/325 mg [[place] 5-325 mg] 1 tab PO Q6HR PRN 7 Days #15 tablet PRN Reason: Severe Pain Home Medications: Alendronate Sodium 70 mg PO TU 01/08/18 [History] Aspirin [Lo-Dose Aspirin EC] 162 mg PO DAILY 01/08/18 [History] Calcium Carbonate [Calcium] 500 mg PO DAILY 01/08/18 [History] Cholecalciferol (D-3) [Vitamin D] 1,000 unit PO DAILY 01/08/18 [History] Cyanocobalamin (B-12) [Vitamin B12] 1,000 mcg IM FR 01/08/18 [History] Ferrous Sulfate [Iron] 325 mg PO DAILY 01/08/18 [History] Magnesium Oxide [Magnesium] 400 mg PO DAILY 01/08/18 [History] Mecobalamin [B-12] 1,000 mcg SL DAILY 01/08/18 [History] Metformin HCl 250 mg PO DAILY 01/08/18 [History] Omeprazole [PriLOSEC] 40 mg PO DAILY 01/08/18 [History] PARoxetine HCl [Paroxetine HCl] 40 mg PO DAILY 01/08/18 [History] Phenytoin ER [Dilantin ER] 100 mg PO TID 01/08/18 [History] Polyethylene Glycol 3350 [MiraLax bowel prep] 17 gm PO DAILY PRN 01/08/18 [History] Simvastatin [Zocor] 10 mg PO DAILY 01/08/18 [History] Sotalol HCl [Betapace] 120 mg PO QPM 01/08/18 [History] HYDROcodone/Acet 5/325 mg [[place] 5-325 mg] 1 tab PO Q6HR PRN 7 Days #15 tablet 01/10/18 [Rx] Patient Taking Own Medication 1 each TP QID PRN each 01/10/18 [Rx] Allergies/Adverse Reactions: Allergy/AdvReac Type Severity Reaction Status Date / Time Penicillins Allergy Hives Verified 11/27/15 17:40 gabapentin AdvReac Confusion Verified 10/23/17 14:25 sulfamethoxazole AdvReac See Verified 01/08/18 21:39 [From Bactrim] Comments terbinafine [From Lamisil] AdvReac Nausea Verified 10/23/17 14:25 trimethoprim [From Bactrim] AdvReac See Verified 01/08/18 21:39 Comments Date of admission: 01/08/18 21:13 Primary care physician: Manfred Molina MD Consults: 01/08/18 23:04 Consult to Orthopedic Surgery [CONS] Routine Consulting Provider: Jaime Reyes Reason for Consult: patellar fracture Call Completed: Yes 01/08/18 23:06 Consult to Physical Therapy [CONS] Routine Comment: Evaluate, develop and implement POC Reason for Consult: patellar fracture Does patient have active BEDREST order?: No Is patient medically & hemodynamically stable?: Yes Patient assessed for mobility or mobilized this visit?: No Consult to Examining Officer [CONS] Routine Reason for SW Consult: D/C planning -- rehab/swing bed 01/09/18 07:19 Consult to Occupational Therapy [CONS] Routine Comment: Evaluate, develop and implement POC Reason for Consult: placement after d/c Does patient have active BEDREST order?: No Is patient medically & hemodynamically stable?: Yes - Constitutional Vitals: Temp Pulse Resp BP Pulse Ox 98.4 F 108 16 106/67 96 01/10/18 11:25 01/10/18 11:25 01/10/18 11:25 01/10/18 11:25 01/10/18 11:25 General appearance: Present: cooperative, mild distress, pleasant, answers questions appropriately Exam: Vitals: Reviewed. General: Alert and oriented x4. In no acute distress. Pain is well controlled. Skin: Normal color, no rash, no lesions. HEENT: EOM, pupils equal, round and reactive. Cardiovascular: Irregularly, irregular, Normal S1 & S2, no rubs, no gallops. 2/6 systolic murmur Lungs: CTA b/l, no wheezes or crackles. Abdomen: Soft, non-tender, no rigidity. NABS in all 4 quadrants. Extremities: No edema in the right lower extr, edema on the left knee. Neurological:Normal cognition. Rest of the physical exam is non contributory - Patient Status Disposition: Transfer SNF Condition: Good Functional capacity at discharge: uses cane/walker Overall status at discharge: patient is progressing back to baseline - Discharge Instructions Follow Up With: John Sanders DO [Partnered Physician] - 01/19/18 10:30 am (in [place] office ) - Diet and Activity Activity: as per physical therapy Diet: low salt diet
--- NOTE | 2018-01-10 11:38 | Physician Discharge Referral ---
ExtendedCare Referral Info Transfer To: SNF/ECF - Diagnosis (1) Left patella fracture Priority: Primary Status: Acute (2) Atrial fibrillation Priority: Secondary Status: Chronic (3) CAD (coronary artery disease) Priority: Secondary Status: Chronic (4) Seizures Priority: Secondary Status: Chronic (5) Diabetes Priority: Secondary Status: Chronic Prognosis: Good Aware of Diagnosis: Patient Aware of Prognosis: Patient - Transfer Medications Prescriptions: HYDROcodone/Acet 5/325 mg [[place] 5-325 mg] 1 tab PO Q6HR PRN 7 Days #15 tablet PRN Reason: Severe Pain Home Medications: Alendronate Sodium 70 mg PO TU 01/08/18 [History] Aspirin [Lo-Dose Aspirin EC] 162 mg PO DAILY 01/08/18 [History] Calcium Carbonate [Calcium] 500 mg PO DAILY 01/08/18 [History] Cholecalciferol (D-3) [Vitamin D] 1,000 unit PO DAILY 01/08/18 [History] Cyanocobalamin (B-12) [Vitamin B12] 1,000 mcg IM FR 01/08/18 [History] Ferrous Sulfate [Iron] 325 mg PO DAILY 01/08/18 [History] Magnesium Oxide [Magnesium] 400 mg PO DAILY 01/08/18 [History] Mecobalamin [B-12] 1,000 mcg SL DAILY 01/08/18 [History] Metformin HCl 250 mg PO DAILY 01/08/18 [History] Omeprazole [PriLOSEC] 40 mg PO DAILY 01/08/18 [History] PARoxetine HCl [Paroxetine HCl] 40 mg PO DAILY 01/08/18 [History] Phenytoin ER [Dilantin ER] 100 mg PO TID 01/08/18 [History] Polyethylene Glycol 3350 [MiraLax bowel prep] 17 gm PO DAILY PRN 01/08/18 [History] Simvastatin [Zocor] 10 mg PO DAILY 01/08/18 [History] Sotalol HCl [Betapace] 120 mg PO QPM 01/08/18 [History] HYDROcodone/Acet 5/325 mg [[place] 5-325 mg] 1 tab PO Q6HR PRN 7 Days #15 tablet 01/10/18 [Rx] Patient Taking Own Medication 1 each TP QID PRN each 01/10/18 [Rx] Allergies/Adverse Reactions: Allergy/AdvReac Type Severity Reaction Status Date / Time Penicillins Allergy Hives Verified 11/27/15 17:40 gabapentin AdvReac Confusion Verified 10/23/17 14:25 sulfamethoxazole AdvReac See Verified 01/08/18 21:39 [From Bactrim] Comments terbinafine [From Lamisil] AdvReac Nausea Verified 10/23/17 14:25 trimethoprim [From Bactrim] AdvReac See Verified 01/08/18 21:39 Comments - Respiratory Orders None Smoking Cessation: Smoking cessation has been advised. For more information, call the [place] Tobacco Quit Line at 2-604-RJHE-NOW. - Advance Directives Code Status: Full Code - Mobility Orders Ambulate - Rehabiliation Orders Rehab Potential: Good Rehab Orders: Evaluation for Physical Therapy, Evaluation for Occupational Therapy - Diet Orders Regular CERTIFICATION: I certify that the transfer of the above named patient to an Extended Care Facility is necessary for the continuing treatment of the diagnosis listed. The above information is true and accurate reflection of patient's current condition. Confidential - Redisclosure prohibited without a patient's written consent.
[2018-01-10] MEDS: traMADol 50 MG TABLET PO PRN (12:05)
[2018-01-10 15:09] LABS: Bilirubin,Urine Negative (Negative); Blood,Urine Small (Negative); Clarity,Urine Clear (Clear); Color,Urine Yellow (Yellow); Glucose,Urine (UA) Normal (Normal); Ketones,Urine Negative (Negative); Leukocyte Esterase,Urine Negative (Negative); Nitrite,Urine Negative (Negative); Protein,Urine Negative (Neg-Trace); Specific Gravity,Urine 1.006 (1.010-1.025); Urobilinogen,Urine Normal (Normal)
[2018-01-10 15:11] LABS: Bacteria,Urine None Seen per hpf (None-Few); Hyaline Casts,Urine None Seen per lpf (None-Few); Squamous Epithelial Cell,Urine Few per lpf (None-Few); WBC,Urine 0-3 per hpf (0-3)
[2018-01-10 15:36] VITALS: BP 103/72
== END 2018-01-10 17:50 ==
LOC: EMEROOARM 18:06 → 3NENU 18:06 → SUATTDRO 21:13 → 3NENU 21:52
PROVIDERS: ADMIT Pediatrics; ATTEND Internal Medicine